=== PATIENT | female | born 1975 | race Two or more races ===

== ENCOUNTER 2019-12-31 17:20 | Emergency (ER) | payer OTHER ==
[~2019-12-31] VITALS: Ht 167.6 cm; Wt 78.3 kg
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
[2019-12-31 19:50] VITALS: BP 146/90
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
[2019-12-31] MEDS ORDERED: DICL50TA4 PO (20:08)
[2019-12-31] MEDS ORDERED: HYDR-3164 PO (20:08)
[2019-12-31] MEDS ORDERED: ORPH100T PO (20:08)
== END 2019-12-31 20:18 | disposition home or self-care (01) ==
LOC: ER 17:20
DX: S20.212A Contusion of left front wall of thorax, initial encounter (principal); S40.012A Contusion of left shoulder, initial encounter; S00.83XA Contusion of other part of head, initial encounter; V98.8XXA Other specified transport accidents, initial encounter; Y93.89 Activity, other specified; Y92.89 Other specified places as the place of occurrence of the external cause; Y99.8 Other external cause status
CPT/HCPCS: 71046; 73030; 99284